=== PATIENT | male | born 1950 | race Two or more races ===

== ENCOUNTER 2017-11-07 18:35 | Observation (INO) | payer OTHER ==
[~2017-11-07] VITALS: Ht 170.2 cm; Wt 74.5 kg
[2017-11-07 19:31] LABS: BASOPHIL % 0.6 % (0-2); PLATELET COUNT 139 x10^3mcL (130-400); RED CELL DISTRIBUTION WIDTH 13.5 % (11.5-14.5)
[2017-11-07 19:41] LABS: CALCIUM 9.1 mg/dL (8.5-10.1); CARBON DIOXIDE 27.1 mmol/L (21-32); CHLORIDE SERUM 103 mmol/L (98-107); CREATININE SERUM 1.1 mg/dL (0.7-1.3); GFR1 > 60 mL/min; GLUCOSE SERUM 191 mg/dL (74-106); POTASSIUM SERUM 3.5 mmol/L (3.5-5.1); SODIUM SERUM 137 mmol/L (136-145)
[2017-11-07 19:46] LABS: ALBUMIN 3.4 g/dL (3.4-5.0); ALKALINE PHOSPHATASE 42 U/L (46-116); ALT/SGPT 32 U/L (16-63); AST/SGOT 19 U/L (15-37); BILIRUBIN TOTAL 0.51 mg/dL (0.20-1.00); TOTAL PROTEIN, SERUM 7.4 g/dL (6.4-8.2)
[2017-11-07 23:51] VITALS: BP 155/79
[2017-11-08] MEDS ORDERED: ATORVASTATIN CA20 M1 PO (00:37)
[2017-11-08] MEDS ORDERED: TOPROL XL50 MG PO (00:38)
[2017-11-08] MEDS ORDERED: HCTZ/LISINOPRIL1 TAB PO (00:40)
[2017-11-08] MEDS ORDERED: ASPIR 8181 MG PO (00:43)
[2017-11-08 02:13] LABS: T3 TOTAL 1.4 ng/mL
[2017-11-08 02:16] LABS: MAGNESIUM 1.8 mg/dL (1.8-2.4); PHOSPHOROUS 2.9 mg/dL (2.5-4.9)
[2017-11-08 04:40] LABS: FREE T4 0.99 ng/dL (0.76-1.46); FREE THYROXINE INDEX 2.7 ug/dL (1.4-4.5); T4(THYROXINE) 7.7 ug/dL (4.7-13.3)
[2017-11-08 06:05] VITALS: BP 158/86
[2017-11-08 06:18] LABS: BASOPHIL % 0.5 % (0-2); PLATELET COUNT 135 x10^3mcL (130-400); RED CELL DISTRIBUTION WIDTH 13.3 % (11.5-14.5)
[2017-11-08 06:58] LABS: CALCIUM 8.8 mg/dL (8.5-10.1); CARBON DIOXIDE 25.8 mmol/L (21-32); CHLORIDE SERUM 104 mmol/L (98-107); CREATININE SERUM 1.1 mg/dL (0.7-1.3); GFR1 > 60 mL/min; GLUCOSE SERUM 139 mg/dL (74-106); POTASSIUM SERUM 3.8 mmol/L (3.5-5.1); SODIUM SERUM 138 mmol/L (136-145)
[2017-11-08 10:55] VITALS: BP 170/91
[2017-11-08 11:39] VITALS: BP 143/82
[2017-11-08 11:54] LABS: microscopic required? NO
[2017-11-08 12:11] LABS: UA SPECIFIC GRAVITY 1.015 (1.005-1.035); urine erythrocyte NEGATIVE (NEGATIVE)
[2017-11-08 12:40] LABS: AMPHETAMINE QUAL UR NONE DETECTED (NEG <=1000)
[2017-11-08 14:49] VITALS: BP 157/75
[2017-11-08] MEDS ORDERED: HYDROCHLOROTH12.5 M3 PO ×2 (15:04→15:10)
[2017-11-08 15:07] VITALS: BP 141/79
[2017-11-08] MEDS ORDERED: ZESTRIL20 MG PO (15:09)
[2017-11-08] MEDS ORDERED: METFORMIN HCL500 MG PO (15:47)
[2017-11-08 17:26] VITALS: BP 147/82
== END 2017-11-08 18:25 | disposition home or self-care (01) | DRG 69 ==
LOC: ED 18:35 → DU 22:45
PROVIDERS: Emergency Medicine; Family Medicine Sports Medicine
DX: G45.9 Transient cerebral ischemic attack, unspecified (principal); I42.2 Other hypertrophic cardiomyopathy; I11.9 Hypertensive heart disease without heart failure; I08.3 Combined rheumatic disorders of mitral, aortic and tricuspid valves; E78.1 Pure hyperglyceridemia; Z79.82 Long term (current) use of aspirin; Z68.26 Body mass index [BMI] 26.0-26.9, adult
CPT/HCPCS: 83880; 84439; 97530-GP; G0378; J1885; J7030; Q9967

== ENCOUNTER 2018-02-03 02:30 | Observation (INO) | payer OTHER ==
[~2018-02-03] VITALS: Ht 162.6 cm; Wt 80.4 kg
[~2018-02-03 02:30] MED LIST: ASPIR 8181 MG PO; ATORVASTATIN CA20 M1 PO; HCTZ/LISINOPRIL1 TAB PO; HYDROCHLOROTH12.5 M3 PO; METFORMIN HCL500 MG PO; TOPROL XL50 MG PO; ZESTRIL20 MG PO
[2018-02-03 02:37] VITALS: Ht 162.6 cm; Wt 80.4 kg
[2018-02-03 03:58] LABS: BASOPHIL % 0.3 % (0-2); PLATELET COUNT 172 x10^3mcL (130-400); RED CELL DISTRIBUTION WIDTH 14.3 % (11.5-14.5)
[2018-02-03 04:11] LABS: CALCIUM 9.4 mg/dL (8.5-10.1); CARBON DIOXIDE 29.2 mmol/L (21-32); CHLORIDE SERUM 102 mmol/L (98-107); CREATININE SERUM 0.9 mg/dL (0.7-1.3); GFR1 > 60 mL/min; GLUCOSE SERUM 117 mg/dL (74-106); POTASSIUM SERUM 3.7 mmol/L (3.5-5.1); SODIUM SERUM 139 mmol/L (136-145)
[2018-02-03 04:15] LABS: ALBUMIN 3.7 g/dL (3.4-5.0); ALKALINE PHOSPHATASE 44 U/L (46-116); ALT/SGPT 26 U/L (16-63); AST/SGOT 27 U/L (15-37); BILIRUBIN TOTAL 0.54 mg/dL (0.20-1.00); TOTAL PROTEIN, SERUM 7.4 g/dL (6.4-8.2)
[2018-02-03 06:39] VITALS: BP 137/73
[2018-02-03 07:04] LABS: CHOLESTEROL/HDL RATIO 3.1; MAGNESIUM 1.9 mg/dL (1.8-2.4); PHOSPHOROUS 4.2 mg/dL (2.5-4.9); T3 TOTAL 1.23 ng/mL
[2018-02-03 07:23] LABS: FREE T4 1.1 ng/dL (0.76-1.46); FREE THYROXINE INDEX 3.5 ug/dL (1.4-4.5); T4(THYROXINE) 9.7 ug/dL (4.7-13.3)
[2018-02-03 08:41] VITALS: BP 135/78
[2018-02-03 09:20] VITALS: BP 136/70
[2018-02-03 12:19] VITALS: BP 125/69
[2018-02-03 15:17] LABS: microscopic required? NO
[2018-02-03 15:25] LABS: UA SPECIFIC GRAVITY 1.015 (1.005-1.035); urine erythrocyte NEGATIVE (NEGATIVE)
[2018-02-03 15:34] LABS: AMPHETAMINE QUAL UR NONE DETECTED (NEG <=1000)
[2018-02-03 16:51] VITALS: BP 136/85
[2018-02-03 20:39] VITALS: BP 114/66
[2018-02-04 05:51] VITALS: BP 121/79
[2018-02-04 06:02] LABS: BASOPHIL % 0.3 % (0-2); PLATELET COUNT 172 x10^3mcL (130-400); RED CELL DISTRIBUTION WIDTH 14.3 % (11.5-14.5)
[2018-02-04 06:21] LABS: CALCIUM 9.3 mg/dL (8.5-10.1); CARBON DIOXIDE 27.8 mmol/L (21-32); CHLORIDE SERUM 103 mmol/L (98-107); CREATININE SERUM 0.9 mg/dL (0.7-1.3); GFR1 > 60 mL/min; GLUCOSE SERUM 103 mg/dL (74-106); SODIUM SERUM 139 mmol/L (136-145)
[2018-02-04 09:27] VITALS: BP 121/79
== END 2018-02-04 12:03 | disposition home or self-care (01) | DRG 206 ==
LOC: ED 02:30 → DU 05:20
PROVIDERS: Emergency Medicine; Family Medicine Sports Medicine
DX: M94.0 Chondrocostal junction syndrome [Tietze] (principal); K76.0 Fatty (change of) liver, not elsewhere classified; E11.65 Type 2 diabetes mellitus with hyperglycemia; E11.51 Type 2 diabetes mellitus with diabetic peripheral angiopathy without gangrene; I10 Essential (primary) hypertension; E78.5 Hyperlipidemia, unspecified; Z79.84 Long term (current) use of oral hypoglycemic drugs; Z79.82 Long term (current) use of aspirin; Z68.24 Body mass index [BMI] 24.0-24.9, adult
CPT/HCPCS: 82962; 83880; 84439; 85378; G0378; J1815; J2270; J7040; Q0092